=== PATIENT | female | born 1940 | race Caucasian/White ===

== ENCOUNTER 2018-04-30 10:37 | Emergency (ER) | payer MEDICARE, OTHER ==
[~2018-04-30 10:37] MED LIST: LISI10TA7 PO; PANT40TA PO
[2018-04-30 11:50] LABS: BASOPHILS % (AUTO) 0.5 % (0.0-5.0); HEMATOCRIT 34.7 % (36-48); LYMPHOCYTES % (AUTO) 6.5 % (21.0-51.0); MEAN CORPUSCULAR HGB CONC 33.9 g/dL (32.0-36.0); MEAN CORPUSCULAR VOLUME 85.7 fL (79-99); MONOCYTES % (AUTO) 4.1 % (3.0-13.0); NEUTROPHILS % (AUTO) 88.9 % (40.0-77.0); PLATELET COUNT (AUTO) 487 K/uL (130-400); RED BLOOD CELL COUNT(AUTO) 4.05 MIL/uL (4.00-5.50); RED CELL DISTRIBUTION WIDTH 14.5 % (11.0-15.5); WHITE BLOOD COUNT (AUTO) 13.7 K/uL (4.8-10.8)
[2018-04-30] MEDS ORDERED: SODIUM CHLORIDE 0.9% 500ML 500 ML IV ONE (12:05)
[2018-04-30 12:12] LABS: INR 0.97 (0.85-1.15); PARTIAL THROMBOPLASTIN TIME 24.7 SEC (26.3-35.5); PROTHROMBIN TIME 10.2 SEC (9.6-11.6)
[2018-04-30 12:28] LABS: ALBUMIN 3.9 g/dL (3.5-5.0); BILIRUBIN,TOTAL 0.3 mg/dL (0.2-1.0); CREATININE 1.2 mg/dL (0.5-1.5); POTASSIUM 4.5 mmol/L (3.5-5.1)
[2018-04-30] MEDS ORDERED: LORAZEPAM 2 MG/ML 1 ML VIAL ONE (14:56)
== END 2018-04-30 15:58 | disposition home or self-care (01) ==
LOC: EDH 10:37
DX: S43.492A Other sprain of left shoulder joint, initial encounter (principal); S16.1XXA Strain of muscle, fascia and tendon at neck level, initial encounter; M54.5 Low back pain; R41.82 Altered mental status, unspecified; R79.1 Abnormal coagulation profile; Z88.0 Allergy status to penicillin; Z88.6 Allergy status to analgesic agent; X58.XXXA Exposure to other specified factors, initial encounter; Y93.89 Activity, other specified; Y92.89 Other specified places as the place of occurrence of the external cause; Y99.8 Other external cause status
CPT/HCPCS: 36415; 71045; 72125; 72131; 73030; 80053; 83605; 85025; 85610; 85730; 87040 ×2; 93005; 96361; 96374; 99285; J2060; J7040

== ENCOUNTER 2018-05-16 14:03 | Emergency (ER) | payer OTHER | END 2018-05-16 16:42 | disposition home or self-care (01) | LOC: EDH 14:03 | DX: F03.90 Unspecified dementia, unspecified severity, without behavioral disturbance, psychotic disturbance, mood disturbance, and anxiety (principal); R63.0 Anorexia; F32.9 Major depressive disorder, single episode, unspecified; Z88.6 Allergy status to analgesic agent; Z88.0 Allergy status to penicillin ==